=== PATIENT | female | born 1940 | race Caucasian/White ===

== ENCOUNTER 2019-01-08 07:55 | Day surgery (SDC) | payer MEDICARE, BC ==
[2019-01-07 10:15] LABS: HEMATOCRIT 41.1 % (36.0-48.0); MCH 31.3 pg (26.0-34.0); MCHC 34.1 g/dL (31.0-37.0); MCV 91.7 fL (80.0-100.0); MEAN PLATELET VOLUME 9.9 fL (7.4-10.4); RBC 4.48 10x6/uL (4.00-5.40); RDW 12.9 % (11.5-14.5)
[~2019-01-08] VITALS: Ht 162.6 cm; Wt 56.4 kg
[~2019-01-08 07:55] MED LIST: ALENDRONATE SOD40 MG PO; ASPIRIN EC81 M1 PO; LEVOTHYROXINE50 MCG PO; NORVASC5 MG PO; VITAMIN D2000 UNIT PO; ZOCOR10 MG PO
[2019-01-08] MEDS ORDERED: GAVILAX510 GM PO (09:47)
[2019-01-08 09:52] VITALS: BP 133/60; BMI 21.3
--- NOTE | 2019-01-08 17:15 | OP ---
PATIENT NAME: CHONG FORD MEDICAL RECORD: [id number] :40 LOCATION:D.OPS ADMISSION DATE: SURGEON: TAMARA MAYBERRY MD DATE OF OPERATION: 01/08/2019 SURGEON: Tamara Mayberry MD ANESTHESIA: General anesthesia by Porsha Bernal CRNA DIAGNOSES: 1. Midline cystocele, Dairy-Walker grade II. 2. Rectocele, Dairy-Walker grade II. PROCEDURES: 1. Cystoscopy. 2. Cystocele repair using 8- x 12-cm Coloplast [place] dermis graft. 3. Rectocele repair by levator ani muscle plication. FINDINGS: On cystoscopy, single ureteral orifices bilaterally. No bladder injury. No bladder tumors were seen. BLOOD LOSS: 50 mL or less. CLINICAL HISTORY: This is a 78-year-old female, A0, who discovered a cystocele when she felt something "dropping down into the vaginal region." She was examined by her spring repairer helper hand and he told her that she had a cystocele. She does not have any trouble emptying her bladder. However, she finds the cystocele to be uncomfortable. In August of 2018, she also developed issues with constipation. She has to use mag citrate and stool softeners to have a bowel movement. In terms of voiding, she has nocturia times 2 with urge incontinence. She has no stress incontinence when she was examined. Going back to the rectum, she does not know if she is fully emptying the bladder after defecation. Therefore, since she is having symptomatic rectocele also, she wants to have the rectocele repaired. She is aware that repairing the cystocele without putting in a pubovaginal sling may unmask occult stress urinary incontinence. She is ALLERGIC TO SULFA and she was given Ancef on-call to the OR. It should be noted that, on the preoperative chest x-ray, a nodule was seen on the chest x-ray. A CT scan of the chest has been ordered by Dr. Lomeli of anesthesia. DESCRIPTION OF PROCEDURE: The patient was given induction of general anesthesia in supine position. She was then placed into low lithotomy position and shaved, prepped, and draped. A Benavidez catheter was placed into the bladder and put to bag drainage. The labia majora were retracted laterally using stay sutures of #2 nylon. These stay sutures were anchored to the medial thighs. A weighted speculum was used to hold the posterior vaginal wall down. The cystocele actually descended sufficiently to strike the posterior vaginal wall weighted speculum. The anterior vaginal wall was infiltrated with Pitressin solution. Twenty units of Pitressin was dissolved in 100 mL of injectable normal saline. This injection was used for hydrodissection. A transverse incision was made at the bladder neck level. Dissection was then carried out using Metzenbaum scissors to go through the endopelvic fascia on both sides. The pubocervical ligament was dissected through on both sides. The space of Retzius was also entered into and dissected. The presacral space posteriorly was dissected bluntly with the fingers. Eventually, there was a clear space on either side of the bladder, sweeping from the urethra all the way to the ischial spines. We OPERATIVE REPORT [id number] CHONG FORD then placed our 4 suspensory sutures. These were of 2-0 Prolene, which were placed using SpineGuard suture class a regional drivers. The 2 posterior sutures were placed into the sacrospinous ligament. This was placed 1 cm medial to the ischial spine. The reason for moving medially is to avoid hitting the internal pudendal artery and the pudendal nerves. Anteriorly, the suspensory sutures were placed through the obturator membrane. By pulling on the sutures, we could verify that the anchorage of the sutures was very strong. At this point, the distance between ischial spines was measured using a flexible tape ruler. This was measured at 8 cm. The patient still has her uterus. The distance from the cervical neck to the level of the bladder neck dissection was 6 cm. An 8 x 12 sheet of cadaveric dermis was then taken out. An arch was cut on one of the long edges so that, at the apex of the arch, the distance to the opposite edge would be 6 cm. The dermal graft was then moistened using normal saline by soaking it in the saline. The 4 suspensory sutures were placed to their respective corners. The posterior graft arms were brought down to the sacrospinous ligament as closely as possible by using Nauruan forceps to push the graft arms down. These were then tied down. The other 2 graft arms anteriorly were then tied down. This resulted in good reduction of the cystocele. The Benavidez catheter was removed and cystoscopy was performed. There were no signs of injury to the bladder at all. The Benavidez catheter was then reintroduced. The anterior vaginal wall incision was closed using running 4-0 Monocryl. We then turned our attention to the rectocele. A muna shaped region of the posterior vaginal wall with the apex of the muna at the perineal body was marked out with a marking pen. The posterior vaginal wall was infiltrated using Pitressin solution. The muna shaped area was excised using a #15 blade and then Metzenbaum scissors to remove it. The vaginal mucosa was then dissected so that the plane between the anterior surface of the rectum and the undersurface of the posterior vaginal mucosa was entered into. As we approached the sides of the rectum, blunt finger dissection was used to clear the rectum away from the levator ani muscles. Horizontal mattress sutures were placed into the levator ani muscles using 2-0 Prolene. These were placed using a SpineGuard suture class a regional drivers. Starting from the most deep set of sutures, I progressively became more superficial as I added more and more mattress sutures. At the end of the procedure, there was a nice muscle shelf which had been brought over from the sides and meeting at the midline to push the rectocele down. The wound was irrigated with normal saline and then the rectocele repair posterior vaginal wall was closed using running 4-0 Vicryl. The Benavidez catheter was then removed for a voiding trial today. Vaginal packing consisting of Kerlix infiltrated with estrogen cream was placed into the vagina. This packing will be removed prior to her going home tonight. Also, if she is unable to void, she will be sent home with an indwelling Benavidez catheter. The stay sutures for the labia majora were cut and removed entirely. The patient was awakened and brought to the recovery room. I will see the patient in follow up in 2 weeks' time to check on her voiding symptoms and to check her postvoid residual. TRANSINT:[id number] Voice Confirmation ID: [id number] DOCUMENT ID: [id number] OPERATIVE REPORT [id number] CHONG FORD, TAMARA Epstein MD at 1715 CC: [id number] DICTATION DATE: 01/08/19 1523 ACCESS DATABASE DEVELOPER: 01/08/19 1637 [facility] [address] [place] [address]
--- NOTE | 2019-01-08 19:22 | NUR ---
1921 REPORT PHONED TO ABNER TSAI LPN TO 220 BY FLORENCE
--- NOTE | 2019-01-08 19:45 | NUR ---
PT ARRIVED TO FLOOR, ALERT AND ORIENTED. FAMILY AT BEDSIDE. DENIES NEEDS, CL IN REACH, WILL CTM
[2019-01-08 21:56] VITALS: BP 142/69
[2019-01-09 00:37] VITALS: Ht 162.6 cm; Wt 56.4 kg
[2019-01-09 01:32] VITALS: BP 140/51
[2019-01-09 05:23] VITALS: BP 154/60
[2019-01-09 08:44] VITALS: BP 131/57
--- NOTE | 2019-01-09 10:51 | NUR ---
PT STATES PAIN IS NOT RELIEVED WHEN SHE IS MOVING DOES NOT WANT MORPHINE DR MAYBERRY CALLED FOR OTHER MEDS
--- NOTE | 2019-01-09 11:42 | NUR ---
PT STATING PAIN CONTROL IS MUCH BETTER. SMILING AT THIS MOMENT. FRIENDS AT BEDSIDE. VAG PACK STILL IN PLACE. CALL LIGHT IN REACH
[2019-01-09 13:31] VITALS: BP 110/46
--- NOTE | 2019-01-09 13:49 | NUR ---
PT UP IN CHAIR AT BEDSIDE WITH BILAT SCDS ON AT PRESNT. CONSENTED TO WEAR THEM NOW. AMBULATED TO BR WITH ASSIST AND LEAKED ON FLOOR DURING PROCESS. DID NOT VOID IN [place]
[2019-01-09 17:21] VITALS: BP 131/51
== END 2019-01-09 17:30 | disposition home or self-care (01) ==
LOC: OBSVTIME → D.OPS 07:55 → D.MS 17:48 → D.OPS 17:48 → OBSVTIME 17:50 → D.MS 01-09 17:12 → D.OPS 01-09 17:30 → D.MS 01-09 17:30
PROVIDERS: Anesthesiology; ATTEND Urology
DX: N81.11 Cystocele, midline (principal); N81.6 Rectocele

== ENCOUNTER → 2019-01-28 16:27 | Outpatient (CLI) | payer MEDICARE, BC ==
[2019-01-09 00:37] VITALS: BMI 21.3
[~2019-01-28 16:27] MED LIST changes: +GAVILAX510 GM PO
== END | disposition home or self-care (01) ==
LOC: D.LABREF 16:27
PROVIDERS: ATTEND Urology
DX: N39.0 Urinary tract infection, site not specified (principal)